=== PATIENT | female | born 1955 | race Caucasian/White ===

== ENCOUNTER → 2017-04-18 | Outpatient (REF) | payer OTHER | LOC: M SFHCLERA 15:19 | DX: J02.9 Acute pharyngitis, unspecified (principal) ==

== ENCOUNTER 2023-05-23 10:15 | Emergency (ER) | payer MEDICARE ==
[~2023-05-23] VITALS: Ht 152.4 cm; Wt 63.9 kg
[~2023-05-23 10:15] MED LIST: DOXE25CA PO; IRON27TA2 PO; PANT40TA29 PO; SYNT75TA PO; TARTCAP PO; TOPR25TA PO; TRIA37.577 PO
[2023-05-23] MEDS ORDERED: LEVO25TA5 (10:23)
[2023-05-23] MEDS ORDERED: AMOX500C (10:23)
[2023-05-23] MEDS ORDERED: LORA1TAB23 (10:23)
[2023-05-23] MEDS: OXYMETAZOLINE 0.05% NASAL SPRAY (AFRIN) ONE (12:48)
[2023-05-23 12:51] LABS: BASO % 0.4 % (0.0-1.0); EOS % 0.2 % (0.0-3.0); HEMATOCRIT 40.4 % (36.0-47.0); HEMOGLOBIN 13.8 g/dl (12.0-15.5); LYMPH # 1.7 10^3/uL (1.5-5.0); LYMPH % 17.9 % (24.0-44.0); MEAN CORPUSCULAR HEMOGLOBIN 32.4 pg (27.0-33.0); MEAN CORPUSCULAR HGB CONC 34.2 g/dl (32.0-36.5); MEAN CORPUSCULAR VOLUME 94.8 fl (80.0-96.0); MONO # 1.4 10^3/uL (0.0-0.8); MONO % 14.5 % (2.0-8.0); NEUTROPHILS # 6.4 10^3/uL (1.5-8.5); NEUTROPHILS % 66.8 % (36.0-66.0); PLATELET COUNT, AUTOMATED 122 10^3/uL (150-450); RED BLOOD COUNT 4.26 10^6/uL (4.00-5.40); WHITE BLOOD COUNT 9.5 10^3/uL (4.0-10.0)
[2023-05-23 13:02] LABS: INR 1.16; PROTHROMBIN TIME 14.5 SECONDS (12.5-14.5)
[2023-05-23 13:03] LABS: PARTIAL THROMBOPLASTIN TIME 30.7 SECONDS (24.8-34.2)
[2023-05-23 13:14] LABS: ALBUMIN 4.1 G/DL (3.2-5.2); ALKALINE PHOSPHATASE 117 U/L (46-116); ALT/SGPT 66 U/L (7.0-40); AST/SGOT 76 U/L (<34); BILIRUBIN,TOTAL 1.1 MG/DL (0.3-1.2); BLOOD UREA NITROGEN 7 MG/DL (9-23); CALCIUM LEVEL 9.2 MG/DL (8.3-10.6); CARBON DIOXIDE LEVEL 26 MMOL/L (20-31); CHLORIDE LEVEL 98 MMOL/L (98-107); CREATININE FOR GFR 0.42 MG/DL (0.55-1.30); GLOMERULAR FILTRATION RATE > 60.0 (>45); GLUCOSE, FASTING 116 MG/DL (74-106); POTASSIUM SERUM 3.7 MMOL/L (3.5-5.1); SODIUM LEVEL 134 MMOL/L (136-145); TOTAL PROTEIN 7.9 G/DL (5.7-8.2)
[2023-05-23 13:44] VITALS: BP 127/69; TEMP 98.9; O2SAT 95
== END 2023-05-23 13:52 | disposition home or self-care (01) ==
LOC: M ED 10:15
DX: R04.0 Epistaxis (principal); I10 Essential (primary) hypertension; Z88.2 Allergy status to sulfonamides; Z88.5 Allergy status to narcotic agent; Z79.899 Other long term (current) drug therapy

== ENCOUNTER → 2023-06-30 | Outpatient (CLI) | payer MEDICARE ==
[~2023-06-30] MED LIST changes: +AMOX500C; +LEVO25TA5; +LORA1TAB23
== END ==
LOC: M PLAIMG 14:26
PROVIDERS: ATTEND Otolaryngology
DX: J32.0 Chronic maxillary sinusitis (principal)